=== PATIENT | female | born 2005 | race Caucasian/White ===

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

== ENCOUNTER 2023-05-28 07:22 | Emergency (ER) | payer MEDICAID, OTHER ==
[~2023-05-28] VITALS: Ht 157.5 cm; Wt 78.0 kg
[~2023-05-28 07:22] MED LIST changes: +LORA-1041; -LORA-674
[2023-05-28 09:16] LABS: BASO % 0.5 % (0.0-1.0); EOS # 0.1 10^3/uL (0.0-0.5); EOS % 0.7 % (0.0-3.0); HEMOGLOBIN 14.9 g/dl (12.0-15.5); LYMPH # 1.8 10^3/uL (1.5-5.0); LYMPH % 20.3 % (24.0-44.0); MEAN CORPUSCULAR HEMOGLOBIN 32.7 pg (27.0-33.0); MEAN CORPUSCULAR HGB CONC 33.9 g/dl (32.0-36.5); MEAN CORPUSCULAR VOLUME 96.7 fl (80.0-96.0); MONO # 0.8 10^3/uL (0.0-0.8); MONO % 8.8 % (2.0-8.0); NEUTROPHILS # 6.2 10^3/uL (1.5-8.5); NEUTROPHILS % 69.6 % (36.0-66.0); PLATELET COUNT, AUTOMATED 233 10^3/uL (150-450); RED BLOOD COUNT 4.55 10^6/uL (4.00-5.40); WHITE BLOOD COUNT 8.9 10^3/uL (4.0-10.0)
[2023-05-28 09:27] LABS: INR 0.97; PROTHROMBIN TIME 12.6 SECONDS (12.5-14.5)
[2023-05-28 09:43] LABS: LIPASE 23 U/L (12-53)
[2023-05-28 09:46] LABS: ALBUMIN 4.2 G/DL (3.2-5.2); ALKALINE PHOSPHATASE 177 U/L (46-116); ALT/SGPT 28 U/L (7.0-40); AST/SGOT 23 U/L (<34); BILIRUBIN,DIRECT 0.3 MG/DL (<0.4); BILIRUBIN,TOTAL 0.8 MG/DL (0.3-1.2); BLOOD UREA NITROGEN 6 MG/DL (9-23); CALCIUM LEVEL 9.6 MG/DL (8.5-10.1); CARBON DIOXIDE LEVEL 23 MMOL/L (20-31); CHLORIDE LEVEL 110 MMOL/L (98-107); CREATININE FOR GFR 0.51 MG/DL (0.55-1.30); GLUCOSE, FASTING 90 MG/DL (60-100); POTASSIUM SERUM 4.3 MMOL/L (3.5-5.1); SODIUM LEVEL 140 MMOL/L (136-145)
[2023-05-28 10:25] LABS: HCG, SERUM QUALITATIVE NEGATIVE (NEGATIVE)
[2023-05-28] MEDS ORDERED: ISOVUE-370 76% 100ML VIAL As Ordered ONE (10:51)
[2023-05-28 11:44] VITALS: BP 118/67; TEMP 98.4; O2SAT 98
== END 2023-05-28 11:46 | disposition home or self-care (01) ==
LOC: M ED 07:22
DX: K52.9 Noninfective gastroenteritis and colitis, unspecified (principal); J45.909 Unspecified asthma, uncomplicated; H81.4 Vertigo of central origin; F17.200 Nicotine dependence, unspecified, uncomplicated; K27.9 Peptic ulcer, site unspecified, unspecified as acute or chronic, without hemorrhage or perforation; Z88.1 Allergy status to other antibiotic agents; Z91.018 Allergy to other foods; Z79.52 Long term (current) use of systemic steroids; Z79.811 Long term (current) use of aromatase inhibitors; Z79.899 Other long term (current) drug therapy
CPT/HCPCS: 36415; 74177; 80053; 81001; 82248; 83690; 84703; 85025; 85610; 86850; 86900; 86901; 87086; 99284; Q9967

== ENCOUNTER → 2023-05-29 | Outpatient (REF) | payer OTHER | LOC: M LAB REF 14:34 | PROVIDERS: ATTEND Physician Assistant Medical | DX: K52.9 Noninfective gastroenteritis and colitis, unspecified (principal) ==

== ENCOUNTER 2023-06-22 01:41 | Emergency (ER) | payer MEDICAID, OTHER ==
[~2023-06-22] VITALS: Ht 160 cm; Wt 77.0 kg
[2023-06-22 01:43] VITALS: TEMP 98.7
[2023-06-22] MEDS ORDERED: MIRT-10 (01:53)
[2023-06-22] MEDS ORDERED: PRAZ2CAP (01:53)
[2023-06-22] MEDS ORDERED: DULO1CAP5 (01:53)
[2023-06-22 02:30] VITALS: BP 107/71; O2SAT 98
[2023-06-22 02:47] LABS: RSV AMPLIFICATION NEGATIVE (NEGATIVE)
[2023-06-22] MEDS ORDERED: IBUPROFEN 600MG TAB PO ONE (02:55)
[2023-06-22] MEDS ORDERED: ONDANSETRON 4MG ORAL DISINTEGRATING TAB PO ONE (02:55)
[2023-06-22] MEDS ORDERED: ONDA4TAB6 PO (03:01)
== END 2023-06-22 03:13 | disposition home or self-care (01) ==
LOC: M ED 01:41
DX: J06.9 Acute upper respiratory infection, unspecified (principal); J45.909 Unspecified asthma, uncomplicated; F41.9 Anxiety disorder, unspecified; F17.200 Nicotine dependence, unspecified, uncomplicated; Z88.0 Allergy status to penicillin; Z91.018 Allergy to other foods; Z79.52 Long term (current) use of systemic steroids; Z79.83 Long term (current) use of bisphosphonates; Z79.899 Other long term (current) drug therapy

== ENCOUNTER 2023-06-25 10:25 | Emergency (ER) | payer OTHER ==
[~2023-06-25] VITALS: Ht 157.5 cm; Wt 75.7 kg
[~2023-06-25 10:25] MED LIST changes: +DULO1CAP5; +MIRT-10; +ONDA4TAB6 PO; +PRAZ2CAP
[2023-06-25 12:20] LABS: BASO % 0.6 % (0.0-1.0); EOS # 0.1 10^3/uL (0.0-0.5); EOS % 0.8 % (0.0-3.0); HEMATOCRIT 43.8 % (36.0-47.0); LYMPH # 3.5 10^3/uL (1.5-5.0); LYMPH % 48.5 % (24.0-44.0); MEAN CORPUSCULAR HGB CONC 34.2 g/dl (32.0-36.5); MEAN CORPUSCULAR VOLUME 96.3 fl (80.0-96.0); MONO # 0.9 10^3/uL (0.0-0.8); MONO % 11.9 % (2.0-8.0); NEUTROPHILS # 2.7 10^3/uL (1.5-8.5); NEUTROPHILS % 37.9 % (36.0-66.0); PLATELET COUNT, AUTOMATED 227 10^3/uL (150-450); RED BLOOD COUNT 4.55 10^6/uL (4.00-5.40); WHITE BLOOD COUNT 7.1 10^3/uL (4.0-10.0)
[2023-06-25 12:42] LABS: ALBUMIN 4.2 G/DL (3.2-5.2); ALKALINE PHOSPHATASE 148 U/L (46-116); ALT/SGPT 22 U/L (7.0-40); AST/SGOT 55 U/L (<34); BILIRUBIN,DIRECT 0.3 MG/DL (<0.4); BILIRUBIN,TOTAL 1.1 MG/DL (0.3-1.2); LIPASE 33 U/L (12-53); TOTAL PROTEIN 7.4 G/DL (5.7-8.2)
[2023-06-25] MEDS ORDERED: ONDANSETRON 4MG 2ML VIAL IV ONE (13:15)
[2023-06-25] MEDS ORDERED: NS 1,000 ML IV ONE (13:15)
[2023-06-25 13:32] LABS: HCG, SERUM QUALITATIVE NEGATIVE (NEGATIVE)
[2023-06-25] MEDS ORDERED: ISOVUE-370 76% 100ML VIAL As Ordered ONE (14:38)
[2023-06-25] MEDS ORDERED: PROM25TA12 PO (17:37)
[2023-06-25 18:16] VITALS: BP 118/77; TEMP 98.6; O2SAT 100
== END 2023-06-25 18:21 | disposition home or self-care (01) ==
LOC: M ED 10:25
DX: A04.72 Enterocolitis due to Clostridium difficile, not specified as recurrent (principal); K21.9 Gastro-esophageal reflux disease without esophagitis; F41.9 Anxiety disorder, unspecified; F17.200 Nicotine dependence, unspecified, uncomplicated; Z88.0 Allergy status to penicillin; Z88.1 Allergy status to other antibiotic agents; Z91.018 Allergy to other foods; Z79.52 Long term (current) use of systemic steroids; Z79.83 Long term (current) use of bisphosphonates; Z79.899 Other long term (current) drug therapy
CPT/HCPCS: 74177; 80047; 80076; 83690; 84703; 85025; 96361; 96374; 99284; J2405; Q9967

== ENCOUNTER → 2023-06-26 | Outpatient (REF) | payer OTHER ==
[~2023-06-26] MED LIST changes: +PROM25TA12 PO
== END ==
LOC: M LAB REF 18:06
PROVIDERS: ATTEND Physician Assistant Medical
DX: R19.7 Diarrhea, unspecified (principal)

== ENCOUNTER → 2023-07-03 | Outpatient (REF) | payer OTHER ==
[2023-07-03 15:57] LABS: BASO % 0.4 % (0.0-1.0); EOS # 0.1 10^3/uL (0.0-0.5); EOS % 0.9 % (0.0-3.0); HEMATOCRIT 44.5 % (36.0-47.0); HEMOGLOBIN 14.8 g/dl (12.0-15.5); LYMPH # 3.4 10^3/uL (1.5-5.0); LYMPH % 43.8 % (24.0-44.0); MEAN CORPUSCULAR HEMOGLOBIN 32.7 pg (27.0-33.0); MEAN CORPUSCULAR HGB CONC 33.3 g/dl (32.0-36.5); MEAN CORPUSCULAR VOLUME 98.5 fl (80.0-96.0); MONO # 0.8 10^3/uL (0.0-0.8); MONO % 9.8 % (2.0-8.0); NEUTROPHILS # 3.5 10^3/uL (1.5-8.5); NEUTROPHILS % 44.8 % (36.0-66.0); PLATELET COUNT, AUTOMATED 219 10^3/uL (150-450); RED BLOOD COUNT 4.52 10^6/uL (4.00-5.40); WHITE BLOOD COUNT 7.8 10^3/uL (4.0-10.0)
[2023-07-03 16:28] LABS: ALKALINE PHOSPHATASE 156 U/L (46-116); ALT/SGPT 19 U/L (7.0-40); AST/SGOT 14 U/L (<34); BILIRUBIN,TOTAL 0.7 MG/DL (0.3-1.2); BLOOD UREA NITROGEN 11 MG/DL (9-23); CALCIUM LEVEL 9.4 MG/DL (8.5-10.1); CARBON DIOXIDE LEVEL 25 MMOL/L (20-31); CHLORIDE LEVEL 106 MMOL/L (98-107); GLUCOSE, FASTING 85 MG/DL (60-100); POTASSIUM SERUM 3.9 MMOL/L (3.5-5.1); SODIUM LEVEL 140 MMOL/L (136-145); TOTAL PROTEIN 6.9 G/DL (5.7-8.2)
== END ==
LOC: M SFHCADAM 14:32
PROVIDERS: ATTEND Family Medicine
DX: A04.72 Enterocolitis due to Clostridium difficile, not specified as recurrent (principal)

== ENCOUNTER 2023-07-16 16:19 | Outpatient (CLI) | payer OTHER ==
[~2023-07-16] VITALS: Ht 160 cm; Wt 75.0 kg
[2023-07-16 16:40] VITALS: BP 124/71; O2SAT 98
[2023-07-16] MEDS ORDERED: BEZLOTOXUMAB IV ONE (16:45)
[2023-07-16] MEDS ORDERED: NS IV ONE (16:45)
[2023-07-16 18:24] VITALS: BP 117/71; O2SAT 98
== END 2023-07-16 18:45 ==
LOC: M INFU 16:19
PROVIDERS: ATTEND Physician Assistant Medical
DX: A04.71 Enterocolitis due to Clostridium difficile, recurrent (principal); Z88.1 Allergy status to other antibiotic agents; Z91.018 Allergy to other foods
CPT/HCPCS: 96365; J0565

== ENCOUNTER → 2023-07-31 | Outpatient (REF) | payer MEDICAID | LOC: M SFHCPLAZ 11:19 | PROVIDERS: ATTEND Internal Medicine Infectious Disease | DX: Z53.9 Procedure and treatment not carried out, unspecified reason (principal) ==

== ENCOUNTER → 2023-10-03 | Day surgery (SDC) | payer MEDICAID, OTHER ==
[~2023-10-03] VITALS: Ht 160 cm; Wt 74.4 kg
[~2023-10-03] MED LIST changes: -ALBU2.5V10; +ALBU2.5V10 INH; -ALBU8.5H; +ALBU8.5H INH; -DULO1CAP5; +DULO1CAP5 PO; +FECAL MICROBIOTA TRANSPLANT PREPARATION 35ML BAG XX ONE; -LORA-1041; +LORA-1041 PO; -MIRT-10; +MIRT-10 PO; +NS 1,000 ML IV ONE; -PANT40TA29; +PANT40TA29 PO; -PRAZ2CAP; +PRAZ2CAP PO; +propofoL 200 MG/20 ML VIAL As Ordered ONE
[2023-10-03] MEDS: NS 1,000 ML IV ONE (14:31)
[2023-10-03 15:59] VITALS: TEMP 97.1
[2023-10-03 16:24] VITALS: BP 120/74; O2SAT 100
== END | disposition home or self-care (01) ==
LOC: M OPP 12:35
PROVIDERS: ATTEND Internal Medicine Gastroenterology
DX: K64.4 Residual hemorrhoidal skin tags (principal); K64.0 First degree hemorrhoids; K52.9 Noninfective gastroenteritis and colitis, unspecified; K62.5 Hemorrhage of anus and rectum; F17.200 Nicotine dependence, unspecified, uncomplicated; G47.9 Sleep disorder, unspecified; Z79.3 Long term (current) use of hormonal contraceptives; Z79.51 Long term (current) use of inhaled steroids; Z79.899 Other long term (current) drug therapy; Z88.1 Allergy status to other antibiotic agents; Z91.018 Allergy to other foods

== ENCOUNTER 2023-10-29 04:21 | Emergency (ER) | payer MEDICAID, OTHER ==
[~2023-10-29] VITALS: Ht 157.5 cm; Wt 75.9 kg
[~2023-10-29 04:21] MED LIST changes: -FECAL MICROBIOTA TRANSPLANT PREPARATION 35ML BAG XX ONE; -NS 1,000 ML IV ONE; -propofoL 200 MG/20 ML VIAL As Ordered ONE
[2023-10-29 06:15] VITALS: O2SAT 95
[2023-10-29] MEDS: HALOPERIDOL 5MG/ML 1ML VIAL IV ONE (08:27)
[2023-10-29 08:37] LABS: AMPHETAMINES LEVEL URINE NEGATIVE (NEGATIVE); BARBITURATES URINE NEGATIVE (NEGATIVE); BENZODIAZEPINES URINE NEGATIVE (NEGATIVE); COCAINE METABOLITE URINE NEGATIVE (NEGATIVE); METHADONE URINE NEGATIVE (NEGATIVE); OPIATES URINE NEGATIVE (NEGATIVE); PHENCYCLIDINE URINE NEGATIVE (NEGATIVE)
[2023-10-29 08:39] LABS: CANNABINOIDS URINE POSITIVE (NEGATIVE)
[2023-10-29 09:14] LABS: BASO % 0.4 % (0.0-1.0); EOS % 0.3 % (0.0-3.0); HEMATOCRIT 41.6 % (36.0-47.0); LYMPH # 3.6 10^3/uL (1.5-5.0); LYMPH % 38.6 % (24.0-44.0); MEAN CORPUSCULAR HEMOGLOBIN 32.9 pg (27.0-33.0); MEAN CORPUSCULAR HGB CONC 33.7 g/dl (32.0-36.5); MEAN CORPUSCULAR VOLUME 97.7 fl (80.0-96.0); MONO % 10.7 % (2.0-8.0); NEUTROPHILS # 4.6 10^3/uL (1.5-8.5); NEUTROPHILS % 49.8 % (36.0-66.0); PLATELET COUNT, AUTOMATED 213 10^3/uL (150-450); RED BLOOD COUNT 4.26 10^6/uL (4.00-5.40); WHITE BLOOD COUNT 9.2 10^3/uL (4.0-10.0)
[2023-10-29 09:31] LABS: HCG, SERUM QUALITATIVE NEGATIVE (NEGATIVE)
[2023-10-29 09:32] LABS: BLOOD UREA NITROGEN 11 MG/DL (9-23); CARBON DIOXIDE LEVEL 22 MMOL/L (20-31); CHLORIDE LEVEL 114 MMOL/L (98-107); CREATININE FOR GFR 0.54 MG/DL (0.55-1.30); GLUCOSE, FASTING 100 MG/DL (60-100); POTASSIUM SERUM 4.1 MMOL/L (3.5-5.1); SODIUM LEVEL 140 MMOL/L (136-145)
[2023-10-29 10:29] VITALS: BP 124/82
[2023-10-29 10:59] VITALS: TEMP 96.7
== END 2023-10-29 11:01 | disposition home or self-care (01) ==
LOC: M ED 08:41
DX: F12.188 Cannabis abuse with other cannabis-induced disorder (principal); Z86.19 Personal history of other infectious and parasitic diseases; F31.9 Bipolar disorder, unspecified; K21.9 Gastro-esophageal reflux disease without esophagitis; F17.200 Nicotine dependence, unspecified, uncomplicated; Z88.1 Allergy status to other antibiotic agents; Z91.018 Allergy to other foods; Z79.52 Long term (current) use of systemic steroids; Z79.811 Long term (current) use of aromatase inhibitors; Z79.899 Other long term (current) drug therapy
CPT/HCPCS: 80048; 80307; 81001; 84703; 85025; 87086; 87324; 87507; 96374; 99284; J1630

== ENCOUNTER 2023-11-15 16:19 | Outpatient (CLI) | payer OTHER ==
[~2023-11-15] VITALS: Ht 160 cm; Wt 75.0 kg
[2023-11-15 16:48] VITALS: BP 135/75; O2SAT 97
[2023-11-15] MEDS: BEZLOTOXUMAB 800 MG in NS 100 ML IV ONE (17:23)
[2023-11-15 18:26] VITALS: BP 114/68; O2SAT 100
== END 2023-11-15 18:27 ==
LOC: M INFU 16:19
PROVIDERS: ATTEND Internal Medicine Gastroenterology
DX: A04.72 Enterocolitis due to Clostridium difficile, not specified as recurrent (principal); Z88.1 Allergy status to other antibiotic agents; Z91.018 Allergy to other foods
CPT/HCPCS: 96365; J0565

== ENCOUNTER → 2023-11-23 | Outpatient (REF) | payer OTHER, MEDICAID ==
[2023-11-23 13:23] LABS: BASO # 0.1 10^3/uL (0.0-0.2); BASO % 0.8 % (0.0-1.0); EOS # 0.1 10^3/uL (0.0-0.5); EOS % 1.9 % (0.0-3.0); LYMPH # 2.5 10^3/uL (1.5-5.0); LYMPH % 40.2 % (24.0-44.0); MEAN CORPUSCULAR HEMOGLOBIN 32.4 pg (27.0-33.0); MEAN CORPUSCULAR HGB CONC 32.6 g/dl (32.0-36.5); MEAN CORPUSCULAR VOLUME 99.4 fl (80.0-96.0); MONO # 0.9 10^3/uL (0.0-0.8); MONO % 13.8 % (2.0-8.0); NEUTROPHILS # 2.7 10^3/uL (1.5-8.5); NEUTROPHILS % 43.1 % (36.0-66.0); PLATELET COUNT, AUTOMATED 219 10^3/uL (150-450); RED BLOOD COUNT 4.63 10^6/uL (4.00-5.40); WHITE BLOOD COUNT 6.3 10^3/uL (4.0-10.0)
[2023-11-23 13:54] LABS: C REACTIVE PROTEIN QUANTITATIV < 0.40 MG/DL (<1.0)
[2023-11-23 13:56] LABS: ALBUMIN 3.9 G/DL (3.2-5.2); ALKALINE PHOSPHATASE 190 U/L (46-116); ALT/SGPT 30 U/L (7.0-40); AST/SGOT 21 U/L (<34); BILIRUBIN,TOTAL 0.6 MG/DL (0.3-1.2); BLOOD UREA NITROGEN 13 MG/DL (9-23); CALCIUM LEVEL 9.5 MG/DL (8.5-10.1); CARBON DIOXIDE LEVEL 25 MMOL/L (20-31); CHLORIDE LEVEL 109 MMOL/L (98-107); CREATININE FOR GFR 0.65 MG/DL (0.55-1.30); GLUCOSE, FASTING 93 MG/DL (60-100); POTASSIUM SERUM 4.2 MMOL/L (3.5-5.1); SODIUM LEVEL 139 MMOL/L (136-145); TOTAL PROTEIN 6.9 G/DL (5.7-8.2)
== END ==
LOC: M SFHCPLAZ 09:05
PROVIDERS: ATTEND Internal Medicine Infectious Disease
DX: A04.71 Enterocolitis due to Clostridium difficile, recurrent (principal)

== ENCOUNTER 2023-12-02 09:31 | Emergency (ER) | payer OTHER, MEDICAID ==
[~2023-12-02] VITALS: Ht 157.5 cm; Wt 74.5 kg
[2023-12-02 11:00] LABS: BASO % 0.3 % (0.0-1.0); EOS % 0.2 % (0.0-3.0); HEMATOCRIT 45.3 % (36.0-47.0); HEMOGLOBIN 15.5 g/dl (12.0-15.5); LYMPH # 2.2 10^3/uL (1.5-5.0); LYMPH % 22.7 % (24.0-44.0); MEAN CORPUSCULAR HEMOGLOBIN 32.8 pg (27.0-33.0); MEAN CORPUSCULAR HGB CONC 34.2 g/dl (32.0-36.5); MONO % 10.4 % (2.0-8.0); NEUTROPHILS # 6.5 10^3/uL (1.5-8.5); NEUTROPHILS % 66.2 % (36.0-66.0); PLATELET COUNT, AUTOMATED 237 10^3/uL (150-450); RED BLOOD COUNT 4.72 10^6/uL (4.00-5.40); WHITE BLOOD COUNT 9.8 10^3/uL (4.0-10.0)
[2023-12-02] MEDS: NS 1,000 ML IV ONE (11:22)
[2023-12-02] MEDS: ONDANSETRON 4MG 2ML VIAL IV ONE (11:23)
[2023-12-02] MEDS: MORPHINE 4 MG/ML 1ML VIAL IV ONE (11:23)
[2023-12-02 11:24] LABS: LIPASE 26 U/L (12-53)
[2023-12-02 11:26] LABS: ALBUMIN 3.8 G/DL (3.2-5.2); ALKALINE PHOSPHATASE 183 U/L (46-116); ALT/SGPT 177 U/L (7.0-40); AST/SGOT 254 U/L (<34); BILIRUBIN,DIRECT 0.5 MG/DL (<0.4); BILIRUBIN,TOTAL 1.2 MG/DL (0.3-1.2); BLOOD UREA NITROGEN 9 MG/DL (9-23); CALCIUM LEVEL 9.7 MG/DL (8.5-10.1); CARBON DIOXIDE LEVEL 21 MMOL/L (20-31); CHLORIDE LEVEL 110 MMOL/L (98-107); CREATININE FOR GFR 0.46 MG/DL (0.55-1.30); GLUCOSE, FASTING 105 MG/DL (60-100); POTASSIUM SERUM 4.4 MMOL/L (3.5-5.1); SODIUM LEVEL 139 MMOL/L (136-145); TOTAL PROTEIN 7.1 G/DL (5.7-8.2)
[2023-12-02 11:32] LABS: HCG, SERUM QUALITATIVE NEGATIVE (NEGATIVE)
[2023-12-02 11:49] LABS: RSV AMPLIFICATION NEGATIVE (NEGATIVE)
[2023-12-02] MEDS ORDERED: ONDA4TAB6 PO (14:46)
[2023-12-02] MEDS ORDERED: HYDR-3713 PO (14:46)
[2023-12-02 15:25] VITALS: BP 124/70; TEMP 97.9; O2SAT 97
== END 2023-12-02 15:33 | disposition home or self-care (01) ==
LOC: EDBD 09:31 → M ED 09:31
DX: K80.66 Calculus of gallbladder and bile duct with acute and chronic cholecystitis without obstruction (principal); H81.4 Vertigo of central origin; J45.909 Unspecified asthma, uncomplicated; F41.9 Anxiety disorder, unspecified; Z87.820 Personal history of traumatic brain injury; Z79.2 Long term (current) use of antibiotics; Z79.83 Long term (current) use of bisphosphonates; Z79.52 Long term (current) use of systemic steroids; Z79.899 Other long term (current) drug therapy; Z88.1 Allergy status to other antibiotic agents; Z91.018 Allergy to other foods
CPT/HCPCS: 76705; 80048; 80076; 81001; 83690; 84703; 85025; 87631; 96361; 96374; 99284; J2405

== ENCOUNTER → 2024-01-02 | Outpatient (REF) | payer OTHER, MEDICAID ==
[~2024-01-02] MED LIST changes: +HYDR-3713 PO
[2024-01-02 19:07] LABS: ALBUMIN 3.8 G/DL (3.2-5.2); ALKALINE PHOSPHATASE 176 U/L (46-116); ALT/SGPT 24 U/L (7.0-40); AST/SGOT 16 U/L (<34); BILIRUBIN,DIRECT 0.3 MG/DL (<0.4); BILIRUBIN,TOTAL 0.7 MG/DL (0.3-1.2); TOTAL PROTEIN 6.5 G/DL (5.7-8.2)
[2024-01-02 19:09] LABS: HEPATITIS B SURFACE ANTIBODY POSITIVE (POSITIVE)
== END ==
LOC: M SFHCPLAZ 11:22
PROVIDERS: ATTEND Internal Medicine Infectious Disease
DX: R74.01 Elevation of levels of liver transaminase levels (principal)

== ENCOUNTER → 2024-01-31 | Outpatient (REF) | payer OTHER, MEDICAID ==
[~2024-01-31] MED LIST changes: +ONDA-282 PO; -ONDA4TAB6 PO
[2024-01-31 16:18] LABS: Trichomonas vaginalis (AMP) NOT DETECTED (NEGATIVE)
[2024-01-31 16:42] LABS: GC DNA AMPLIFICATION NEGATIVE (NEGATIVE)
== END ==
LOC: M SFHCPLAZ 14:53
PROVIDERS: ATTEND Internal Medicine Infectious Disease
DX: N76.6 Ulceration of vulva (principal)

== ENCOUNTER 2024-02-14 09:29 | Inpatient (IN) | payer OTHER ==
[~2024-02-14] VITALS: Ht 160 cm; Wt 74.9 kg
[2024-02-14] MEDS ORDERED: DULO1CAP6 PO (09:47)
[2024-02-14] MEDS ORDERED: DOXY-440 PO (09:54)
[2024-02-14 10:20] LABS: BASO # 0.1 10^3/uL (0.0-0.2); BASO % 0.5 % (0.0-1.0); EOS # 0.1 10^3/uL (0.0-0.5); EOS % 1.2 % (0.0-3.0); HEMATOCRIT 45.6 % (36.0-47.0); HEMOGLOBIN 15.4 g/dl (12.0-15.5); LYMPH # 2.7 10^3/uL (1.5-5.0); MEAN CORPUSCULAR HGB CONC 33.8 g/dl (32.0-36.5); MEAN CORPUSCULAR VOLUME 97.9 fl (80.0-96.0); MONO % 10.4 % (2.0-8.0); NEUTROPHILS # 5.4 10^3/uL (1.5-8.5); NEUTROPHILS % 58.7 % (36.0-66.0); PLATELET COUNT, AUTOMATED 236 10^3/uL (150-450); RED BLOOD COUNT 4.66 10^6/uL (4.00-5.40); WHITE BLOOD COUNT 9.1 10^3/uL (4.0-10.0)
[2024-02-14 10:25] LABS: ERYTHROCYTE SEDIMENTATION RATE 20 mm/hr (0-20)
[2024-02-14] MEDS: CIPROFLOXACIN 400 MG in IV 1 EA IV ONE (10:26)
[2024-02-14] MEDS ORDERED: DIPH1TAB81 PO (11:26)
[2024-02-14] MEDS ORDERED: VENTAER INH (11:26)
[2024-02-14] MEDS ORDERED: PANT-23 PO (11:26)
[2024-02-14] MEDS ORDERED: IBUP1TAB6 PO (11:26)
[2024-02-14] MEDS ORDERED: MIRT-11 PO (11:26)
[2024-02-14] MEDS ORDERED: FLUT1INH2 INH (11:26)
[2024-02-14] MEDS ORDERED: MONT10TA97 PO (11:26)
[2024-02-14] MEDS ORDERED: HOME MED LIST COMPLETE! XX SCH (11:30)
[2024-02-14 11:35] LABS: HCG, SERUM QUALITATIVE NEGATIVE (NEGATIVE)
[2024-02-14 11:38] LABS: PROCALCITONIN 0.04 ng/ml
[2024-02-14 11:40] LABS: ALBUMIN 3.6 G/DL (3.2-5.2); ALKALINE PHOSPHATASE 169 U/L (46-116); ALT/SGPT 15 U/L (7.0-40); AST/SGOT 14 U/L (<34); BILIRUBIN,DIRECT 0.2 MG/DL (<0.4); BILIRUBIN,TOTAL 0.7 MG/DL (0.3-1.2); BLOOD UREA NITROGEN 8 MG/DL (9-23); CALCIUM LEVEL 8.9 MG/DL (8.5-10.1); CARBON DIOXIDE LEVEL 24 MMOL/L (20-31); CHLORIDE LEVEL 108 MMOL/L (98-107); CREATININE FOR GFR 0.56 MG/DL (0.55-1.30); GLUCOSE, FASTING 96 MG/DL (60-100); POTASSIUM SERUM 4.3 MMOL/L (3.5-5.1); SODIUM LEVEL 138 MMOL/L (136-145); TOTAL PROTEIN 6.6 G/DL (5.7-8.2)
[2024-02-14] MEDS: metroNIDAZOLE 500 MG in IV 1 EA IV ONE (11:42)
[2024-02-14] MEDS: DULoxetine 30MG CAPSULE (CYMBALTA) PO SCH ×2 (12:00→13:21)
[2024-02-14] MEDS ORDERED: LOMOTIL 2.5MG/0.025MG TABLET PO PRN (12:45)
[2024-02-14] MEDS ORDERED: ALBUTEROL 90 MCG/ACT 8GM HFA INHALER INH PRN (12:45)
[2024-02-14] MEDS ORDERED: IBUPROFEN 600MG TAB PO PRN (12:45)
[2024-02-14] MEDS ORDERED: ACETAMINOPHEN TAB 650MG DOSE (2X325MG) PO PRN (12:45)
[2024-02-14] MEDS: MONTELUKAST 10 MG TAB PO SCH (13:22)
[2024-02-14] MEDS: ENOXAPARIN 40MG/0.4ML SYRINGE (J1650 PER 10MG) SC SCH (13:23)
[2024-02-14] MEDS: PANTOPRAZOLE 40MG TAB (PROTONIX) PO PRN (13:25)
[2024-02-14] MEDS ORDERED: ANUSOL HC CREAM 30GM TOP PRN (13:40)
[2024-02-14] MEDS ORDERED: ANUSOL HC 25MG SUPP PR PRN (13:40)
[2024-02-14] MEDS ORDERED: NICOTINE POLACRILEX 2 MG GUM PO PRN (14:00)
[2024-02-14 15:15] VITALS: BP 126/86; TEMP 97.5; O2SAT 99
[2024-02-14 15:30] LABS: INR 1.01
[2024-02-14] MEDS ORDERED: METR-265 PO (17:26)
[2024-02-14] MEDS ORDERED: RISATAB3 PO (17:26)
[2024-02-14] MEDS ORDERED: CIPR750T2 PO (17:26)
[2024-02-14] MEDS ORDERED: ACET1TAB55 PO (17:26)
[2024-02-14] MEDS ORDERED: LACTOBACILLUS ACIDOPHILUS CAP (BACID) PO SCH (18:00)
[2024-02-14] MEDS ORDERED: metroNIDAZOLE 500 MG in IV 1 EA IV SCH (20:00)
[2024-02-14] MEDS ORDERED: CIPROFLOXACIN 400 MG in IV 1 EA IV SCH (21:00)
[2024-02-14] MEDS ORDERED: PRAZOSIN 1 MG CAP PO SCH (21:00)
[2024-02-14] MEDS ORDERED: MIRTAZAPINE 15 MG TAB PO SCH (21:00)
[2024-02-14] MEDS ORDERED: LORATADINE 10 MG TAB PO SCH (21:00)
== END 2024-02-14 18:20 | disposition home or self-care (01) | DRG 383 ==
LOC: M ED 09:29 → M ED INP 12:57 → M MSPAV 15:20
PROVIDERS: ADMIT Internal Medicine; ATTEND Internal Medicine
DX: L03.113 Cellulitis of right upper limb (principal); F32.A Depression, unspecified; J45.909 Unspecified asthma, uncomplicated; F43.10 Post-traumatic stress disorder, unspecified; F41.9 Anxiety disorder, unspecified; K21.9 Gastro-esophageal reflux disease without esophagitis; Z88.0 Allergy status to penicillin; Z91.018 Allergy to other foods; Z79.899 Other long term (current) drug therapy; K64.8 Other hemorrhoids; F17.200 Nicotine dependence, unspecified, uncomplicated; F12.90 Cannabis use, unspecified, uncomplicated

== ENCOUNTER → 2024-03-05 | Outpatient (REF) ==
[~2024-03-05] MED LIST changes: +ACET1TAB55 PO; +CIPR750T2 PO; +DIPH1TAB81 PO; +DOXY-440 PO; +DULO1CAP6 PO; +FLUT1INH2 INH; +IBUP1TAB6 PO; +METR-265 PO; +MIRT-11 PO; +MONT10TA97 PO; +PANT-23 PO; +RISATAB3 PO; +VENTAER INH
== END ==
LOC: M PLAIMG 10:39
PROVIDERS: ATTEND Internal Medicine
DX: E52 Niacin deficiency [pellagra] (principal)

== ENCOUNTER → 2024-06-09 | Outpatient (REF) | payer OTHER | LOC: M SFHCADAM 12:51 | PROVIDERS: ATTEND Physician Assistant Medical | DX: J02.9 Acute pharyngitis, unspecified (principal); R09.81 Nasal congestion ==

== ENCOUNTER → 2024-06-11 | Outpatient (CLI) | payer OTHER | LOC: M RAD 17:02 | PROVIDERS: ATTEND Student in an Organized Health Care Education/Training Program | DX: M79.671 Pain in right foot (principal) ==

== ENCOUNTER → 2024-06-18 | Outpatient (CLI) | payer MEDICAID, OTHER | LOC: M RAD 10:06 | PROVIDERS: ATTEND Physician Assistant Medical | DX: K82.4 Cholesterolosis of gallbladder (principal); R74.8 Abnormal levels of other serum enzymes ==

== ENCOUNTER 2024-10-09 23:16 | Emergency (ER) | payer MEDICAID, OTHER ==
[~2024-10-09] VITALS: Ht 160 cm; Wt 69.5 kg
[2024-10-10 00:10] LABS: BASO % 0.4 % (0.0-1.0); EOS # 0.1 10^3/uL (0.0-0.5); EOS % 1.2 % (0.0-3.0); HEMATOCRIT 44.1 % (36.0-47.0); HEMOGLOBIN 14.9 g/dl (12.0-15.5); LYMPH # 2.7 10^3/uL (1.5-5.0); LYMPH % 27.3 % (24.0-44.0); MEAN CORPUSCULAR HEMOGLOBIN 32.5 pg (27.0-33.0); MEAN CORPUSCULAR HGB CONC 33.8 g/dl (32.0-36.5); MEAN CORPUSCULAR VOLUME 96.1 fl (80.0-96.0); MONO % 9.9 % (2.0-8.0); NEUTROPHILS # 6.1 10^3/uL (1.5-8.5); PLATELET COUNT, AUTOMATED 202 10^3/uL (150-450); RED BLOOD COUNT 4.59 10^6/uL (4.00-5.40)
[2024-10-10] MEDS: NS (Normal Saline) 0.9% 1,000 ML IV ONE (01:09)
[2024-10-10] MEDS: ACETAMINOPHEN *IV* 1,000 MG in IV 1 EA IV ONE (01:09)
[2024-10-10] MEDS: KETOROLAC 30 MG/ML 1ML VIAL IV ONE (01:09)
[2024-10-10] MEDS: MAG SULF 1GM/100ML (MAG RUN) 1 GM in IV 1 EA IV ONE (01:45)
[2024-10-10 01:54] LABS: BLOOD UREA NITROGEN 9 MG/DL (9-23); CARBON DIOXIDE LEVEL 27 MMOL/L (20-31); CHLORIDE LEVEL 107 MMOL/L (98-107); CREATININE FOR GFR 0.57 MG/DL (0.55-1.30); GLOMERULAR FILTRATION RATE > 60.0 (>60); GLUCOSE, FASTING 89 MG/DL (60-100); POTASSIUM SERUM 3.7 MMOL/L (3.5-5.1); SODIUM LEVEL 142 MMOL/L (136-145)
[2024-10-10] MEDS ORDERED: RIZA10TA58 PO (03:00)
[2024-10-10 03:15] VITALS: BP 112/64; TEMP 97.1; O2SAT 98
== END 2024-10-10 03:20 | disposition home or self-care (01) ==
LOC: EDBD 23:16 → M ED 23:16
DX: G43.909 Migraine, unspecified, not intractable, without status migrainosus (principal); Z88.1 Allergy status to other antibiotic agents; R42 Dizziness and giddiness; K21.9 Gastro-esophageal reflux disease without esophagitis; F31.9 Bipolar disorder, unspecified; J45.909 Unspecified asthma, uncomplicated; F17.200 Nicotine dependence, unspecified, uncomplicated; Z79.899 Other long term (current) drug therapy
CPT/HCPCS: 70450; 80048; 83735; 85025; 96365; 96367; 96375; 99284; J0131; J1100; J1885; J3475

== ENCOUNTER → 2024-10-15 | Outpatient (REF) | payer OTHER ==
[~2024-10-15] MED LIST changes: +RIZA10TA58 PO
[2024-10-15 18:46] LABS: FREE T4 1.19 NG/DL (0.89-1.76)
[2024-10-15 18:47] LABS: THYROID STIMULATING HORMONE 1.548 uIU/ML (0.55-4.78)
== END ==
LOC: M LABDRWAD 17:22
PROVIDERS: ATTEND Physician Assistant Medical
DX: R55 Syncope and collapse (principal); G43.009 Migraine without aura, not intractable, without status migrainosus; G44.209 Tension-type headache, unspecified, not intractable

== ENCOUNTER → 2024-10-21 | Outpatient (REF) | payer OTHER ==
[2024-10-21 21:40] LABS: Trichomonas vaginalis (AMP) NOT DETECTED (NEGATIVE)
[2024-10-21 22:04] LABS: GC DNA AMPLIFICATION NEGATIVE (NEGATIVE)
== END ==
LOC: M SFHCADAM 17:32
PROVIDERS: ATTEND Physician Assistant Medical
DX: Z00.00 Encounter for general adult medical examination without abnormal findings (principal); Z12.4 Encounter for screening for malignant neoplasm of cervix; N94.6 Dysmenorrhea, unspecified; N92.1 Excessive and frequent menstruation with irregular cycle

== ENCOUNTER → 2024-11-14 | Outpatient (CLI) | payer OTHER | LOC: M WHC 07:30 | PROVIDERS: ATTEND Physician Assistant Medical | DX: N92.1 Excessive and frequent menstruation with irregular cycle (principal); Z12.4 Encounter for screening for malignant neoplasm of cervix; N94.6 Dysmenorrhea, unspecified ==

== ENCOUNTER → 2025-06-18 | Outpatient (CLI) | payer OTHER ==
[~2025-06-18] MED LIST changes: -IBUP1TAB6 PO; +SFHIBU600 PO
[2025-06-18 15:59] LABS: PROLACTIN 4.07 NG/ML
[2025-06-18 16:00] LABS: FREE T4 1.05 NG/DL (0.89-1.76)
[2025-06-18 16:01] LABS: LUTEINIZING HORMONE 11.1 mIU/ML; PROGESTERONE 0.47 NG/ML
== END ==
LOC: M PLALAB 11:29
PROVIDERS: ATTEND Specialist
DX: N92.6 Irregular menstruation, unspecified (principal)